=== PATIENT | female | born 2005 | race Two or more races ===

== ENCOUNTER 2023-10-06 09:22 | Inpatient (IN) ==
[2023-10-06] MEDS ORDERED: PITOCIN IVP ONE (09:46)
[2023-10-06] MEDS ORDERED: NUBAIN INJ 20 MG AMP IVP PRN (09:46)
[2023-10-06] MEDS ORDERED: REGLAN INJ 10 MG VIAL IVP PRN ×4 (09:46→14:32)
[2023-10-06 09:49] VITALS: BMI 32.6
[2023-10-06 09:49] LABS: BILIRUBIN,URINE NEGATIVE (NEGATIVE); BLOOD/HEMOGLOBIN,URINE 5+ (NEGATIVE); GLUCOSE, URINE NEGATIVE (NEGATIVE); KETONES,URINE NEGATIVE (NEGATIVE); LEUKOCYTE ESTERASE ,URINE 1+ (NEGATIVE); NITRITES,URINE NEGATIVE (NEGATIVE); PROTEIN,URINE 2+ (NEGATIVE); UROBILINOGEN,URINE NORMAL (NORMAL)
[2023-10-06 09:55] LABS: AMNISURE ROM TEST THERE IS A RUPTURE (NO RUPTURE)
[2023-10-06 10:01] LABS: COLOR,URINE PALE YELLOW (YELLOW)
[2023-10-06 10:02] LABS: APPEARANCE,URINE FLOCCULENT (CLEAR); BACTERIA,URINE TRACE /HPF (NEGATIVE); RBC,URINE TNTC /HPF (0-3); SQUAMOUS EPITHELIAL CELL,UR MODERATE /HPF (NEGATIVE)
[2023-10-06 10:09] LABS: BASOPHILS # (AUTO) 0.1 X10^3/uL (0.0-0.1); BASOPHILS % (AUTO) 0.7 % (0.2-1.0); EOSINOPHILS # (AUTO) 0.1 x10^3/uL (0.0-0.2); EOSINOPHILS % (AUTO) 1.8 % (0.9-2.9); HEMATOCRIT 34.4 % (36.0-47.0); HEMOGLOBIN 11.4 g/dL (12.0-16.0); LYMPHOCYTES # (AUTO) 1.5 X10^3/uL (1.3-2.9); LYMPHOCYTES % (AUTO) 19.1 % (21.0-51.0); MEAN CORPUSCULAR HEMOGLOBIN 26.7 pg (27.0-34.0); MEAN CORPUSCULAR HGB CONC 33.2 g/dL (33.0-35.0); MEAN CORPUSCULAR VOLUME 80.4 fL (80.0-100.0); MONOCYTES # (AUTO) 0.8 x10^3/uL (0.3-0.8); NEUTROPHILS # (AUTO) 5.4 x10^3/uL (2.2-4.8); NEUTROPHILS % (AUTO) 68.4 % (42.0-75.0); PLATELET COUNT 199 X10^3/uL (150.0-450.0); RED BLOOD COUNT 4.28 X10^6/uL (3.5-5.4); RED CELL DISTRIBUTION WIDTH 16.5 % (11.6-16.5); WHITE BLOOD COUNT 7.9 X10^3/uL (3.6-10.0)
[2023-10-06 10:18] LABS: BLOOD UREA NITROGEN 9 mg/dL (7-18); CALCIUM 9.1 mg/dL (8.5-10.1); CARBON DIOXIDE 21.3 mmol/L (21-32); CHLORIDE 104 mmol/L (98-107); CREATININE 0.49 mg/dL (0.55-1.02); GLUCOSE 79 mg/dL (65-99); POTASSIUM 4.1 mmol/L (3.5-5.1); SODIUM 137 mmol/L (136-145); eGFR NON BLACK RACES > 60 (>60)
[2023-10-06] MEDS ORDERED: LR 1,000 ML IV 1,000 ML IV ONE (10:18)
[2023-10-06] MEDS: LR 1,000 ML IV 1,000 ML IV SCH ×2 (10:20→19:27)
[2023-10-06] MEDS ORDERED: XYLOCAINE 2 % (PLAIN) ONE (12:53)
[2023-10-06] MEDS ORDERED: DIPRIVAN VIAL 20 ML ONE (12:53)
[2023-10-06] MEDS ORDERED: EPHEDRINE SULFATE INJ ONE (12:53)
[2023-10-06] MEDS ORDERED: NEO-SYNEPHRINE INJ ONE (12:53)
[2023-10-06] MEDS ORDERED: PRECEDEX INJ VIAL IVP ONE (12:53)
[2023-10-06] MEDS ORDERED: MARCAINE SPINAL ONE (12:54)
[2023-10-06] MEDS ORDERED: DILAUDID INJ ONE (12:56)
[2023-10-06] MEDS ORDERED: PEPCID 20 MG VIAL ONE (13:00)
[2023-10-06] MEDS ORDERED: ZOFRAN INJ 4 MG VIAL ONE (13:00)
[2023-10-06] MEDS ORDERED: NS 100 ML IV 100 ML ONE (13:01)
[2023-10-06] MEDS ORDERED: NOZIN NASAL SANITIZER TP ONE (13:01)
[2023-10-06] MEDS ORDERED: ANCEF VIAL 1 GRAM ONE (13:06)
[2023-10-06] MEDS ORDERED: PITOCIN ONE (13:30)
[2023-10-06] MEDS ORDERED: NARCAN INJ IVP PRN (14:05)
[2023-10-06] MEDS ORDERED: BENADRYL INJ 50 MG VIAL IVP PRN ×3 (14:05→14:32)
[2023-10-06] MEDS ORDERED: ZOFRAN INJ 4 MG VIAL IVP PRN ×3 (14:05→14:32)
[2023-10-06] MEDS ORDERED: PERCOCET TAB 5/325 MG PO PRN ×2 (14:05→14:32)
[2023-10-06] MEDS ORDERED: TORADOL 30 MG VIAL IVP PRN ×2 (14:05→14:32)
[2023-10-06] MEDS ORDERED: DILAUDID INJ IVP PRN (14:07)
[2023-10-06] MEDS ORDERED: BARHEMSYS INJ IVP PRN (14:07)
[2023-10-06] MEDS ORDERED: MYLICON TAB 80 MG CHEW PO PRN (14:32)
[2023-10-07] MEDS: LR 1,000 ML IV 1,000 ML IV SCH ×2 (04:10→18:03)
[2023-10-07] MEDS: MOTRIN TAB 800 MG PO PRN ×2 (04:10→15:22)
[2023-10-07 05:31] LABS: HEMATOCRIT 29.6 % (36.0-47.0); HEMOGLOBIN 9.6 g/dL (12.0-16.0)
[2023-10-07] MEDS: PRENATAL PLUS PO SCH (08:20)
[2023-10-07] MEDS ORDERED: NS 100 ML IV 100 ML with VENOFER 400 MG IV ONE ×2 (12:00)
[2023-10-07] MEDS: PERCOCET TAB 5/325 MG PO PRN (23:48)
[2023-10-08] MEDS: LR 1,000 ML IV 1,000 ML IV SCH ×2 (01:22→10:19)
[2023-10-08] MEDS: MOTRIN TAB 800 MG PO PRN (04:55)
[2023-10-08] MEDS: PRENATAL PLUS PO SCH (08:11)
[2023-10-08] MEDS: PERCOCET TAB 5/325 MG PO PRN ×2 (08:13→12:16)
[2023-10-08 12:17] VITALS: BP 115/59; PULSE 98; TEMP 97.3; O2SAT 97
[2023-10-08 13:20] VITALS: RESP 18
--- NOTE | 2023-10-09 16:04 | US ---
EXAM:OB GREATER THAN 14 WEEKS LIMITHISTORY:CHECK POSITION, NIXON, IN LABOR;COMPARISON:No relevant prior studies available.TECHNIQUE:12 static images and 0 cine clips were reviewed.FINDINGS:Single gestation in breech position. Posterior fundal placenta. Cardiac activity measuring 131 beats per minute. NIXON of 12. Report states patient is in labor. Low amniotic fluid volume likely secondary to ruptured membranes.IMPRESSION:Single live intrauterine gestation in breech position.THIS IS AN ELECTRONICALLY VERIFIED FINAL REPORT10/06/2023 12:24 PM - Electronically signed by Agustín Nguyen MD
== END 2023-10-08 13:49 | disposition home or self-care (01) | DRG 788 ==
LOC: ER 09:22 → LD 09:46 → MED/SURG 14:23
PROVIDERS: ADMIT Obstetrics & Gynecology Obstetrics; ATTEND Obstetrics & Gynecology Obstetrics
DX: Z3A.40 40 weeks gestation of pregnancy; Z37.0 Single live birth; O32.1XX0 Maternal care for breech presentation, not applicable or unspecified; O41.03X0 Oligohydramnios, third trimester, not applicable or unspecified